=== PATIENT | male | born 1960 | race Caucasian/White ===

== ENCOUNTER 2018-10-28 07:02 | Emergency (ER) | payer MEDICARE, MEDICAID ==
[~2018-10-28] VITALS: Ht 193 cm; Wt 152.5 kg
[~2018-10-28 07:02] MED LIST: ALBU6.7H INH; ASPI325T80 PO; FLUT1DIS3 INH; GUAI600T80 PO; LEVO500T47 PO; NICO-487 TD; PRED10TA PO; [UNRECOGNIZED DRUG - REMARK]
--- NOTE | 2018-10-28 07:14 | NUR ---
PT AMBULATED TO ROOM WITH STEADY GAIT. PT COMPLAINS OF LEFT LQ PAIN THAT STARTED AT 2 AM. REPORTS A FEW BOUGHTS OF NAUSEA, DENIES NOW. PT IS ALERT, ORIENTED, WITH NAD. PT IS CONNECTED TO THE MONITOR. CALL LIGHT WITHIN REACH. Addendum: 10/28/18 at [address] SAFIA TO HIS ROOM. TRANSFERRED FROM [facility] TO BED BY SELF.
[2018-10-28] MEDS ORDERED: KETOROLAC 30 MG/1 ML ONE (07:51)
--- NOTE | 2018-10-28 07:59 | NUR ---
PT MEDICATED PER ORDER. PT TOLERATED WELL.
[2018-10-28] MEDS ORDERED: KETOROLAC 30 MG/1 ML IM ONE (08:00)
--- NOTE | 2018-10-28 08:05 | NUR ---
PT TAKEN TO CT.
--- NOTE | 2018-10-28 08:51 | NUR ---
PT IS RESTING IN BED WITH EYES CLOSED, RESPIRATIONS EQUAL AND NON LABORED. NAD. PT IS CONNECTED TO THE MONITOR. CALL LIGHT WITHIN REACH.
--- NOTE | 2018-10-28 09:09 | NUR ---
REMINDED PT OF THE NEED FOR A URINE SAMPLE. PT STATED THAT HE DOES NOT HAVE TO GO AT THIS TIME.
[2018-10-28 10:11] VITALS: BP 158/99
--- NOTE | 2018-10-28 10:11 | NUR ---
PT IS RESTING IN BED, RESPIRATIONS EQUAL AND NON LABORED. NAD. PT IS CONNECTED TO THE MONITOR. CALL LIGHT WITHIN REACH.
--- NOTE | 2018-10-28 10:24 | NUR ---
Patient given discharge instructions and they have confirmed that they understand the instructions. Patient ambulatory with steady gait.
== END 2018-10-28 10:45 | disposition home or self-care (01) ==
LOC: ED 08:47
DX: N13.2 Hydronephrosis with renal and ureteral calculous obstruction (principal); J44.9 Chronic obstructive pulmonary disease, unspecified
CPT/HCPCS: 74176; 96372; 99284; J1885

== ENCOUNTER 2019-05-24 03:40 | Inpatient (IN) | payer MEDICARE, MEDICAID ==
[~2019-05-24] VITALS: Ht 193 cm; Wt 153.8 kg
[~2019-05-24 03:40] MED LIST changes: -ALBU6.7H INH; +ALBU6.7H8 INH; +APIX5TAB PO; +AZIT500T5 PO; +CYAN-27 PO; +FOLI-17 PO; +MULT1TAB60 PO; +TAMS-11 PO; +THIA100T67 PO
[2019-05-24] MEDS ORDERED: DOCUSATE 100 MG CAPSULE PO PRN (05:00)
[2019-05-24] MEDS ORDERED: POLYETHYLENE GLYCOL 17 GM PACKET PO PRN (05:00)
[2019-05-24] MEDS ORDERED: BISACODYL 10 MG SUPP PR PRN (05:00)
[2019-05-24] MEDS ORDERED: ACETAMINOPHEN 325 MG TABLET PO PRN (05:00)
[2019-05-24 05:04] VITALS: BP 127/83
[2019-05-24 05:51] VITALS: BP 127/83
[2019-05-24 07:13] LABS: ANION GAP 10 mmol/L (5-15); CALCIUM 8.5 mg/dL (8.5-10.1); CHLORIDE 101 mmol/L (98-107); CHOLESTEROL, TOTAL 177 mg/dL (140-239); TRIGLYCERIDES 82 mg/dL (50-200); VLDL CHOLESTEROL 16 mg/dL (0-25)
[2019-05-24 07:37] VITALS: BP 123/77
[2019-05-24 07:37] LABS: BASOPHILS # (AUTO) 0.03 x10^3/uL (0-0.1); BASOPHILS % (AUTO) 1 % (0-1); EOSINOPHILS # (AUTO) 0.19 x10^3/uL (0-0.4); EOSINOPHILS % (AUTO) 3 % (1-7); LYMPHOCYTES # (AUTO) 1.28 x10^3/uL (1-3.4); LYMPHOCYTES % (AUTO) 19 % (22-44); MD SCAN; MEAN CORPUSCULAR HEMOGLOBIN 35.7 pg (27.5-34.5); MEAN CORPUSCULAR HGB CONC 33.1 g/dL (33.2-36.2); MEAN CORPUSCULAR VOLUME 107.8 fL (81-97); MEAN PLATELET VOLUME 8.4 fL (7.4-10.4); MONOCYTES # (AUTO) 0.67 x10^3/uL (0.2-0.8); MONOCYTES % (AUTO) 10 % (2-9); NEUTROPHILS # (AUTO) 4.49 x10^3/uL (1.8-6.8); NEUTROPHILS % (AUTO) 67 % (42-75); PLATELET COUNT 90 x10^3/uL (130-400); RED BLOOD COUNT 4.07 x10^6/uL (4.38-5.82); RED CELL DISTRIBUTION WIDTH 20.8 % (9.4-14.8)
[2019-05-24 07:38] LABS: CHOL/HDL RATIO 2.2; FREE T4 (FREE THYROXINE) 1.13 ng/dL (0.76-1.46); HDL CHOL % 46 % (26-37); HDL CHOLESTEROL (DIRECT) 82 mg/dL (40-60); LDL CHOLESTEROL,CALCULATED 79 mg/dL (54-169)
[2019-05-24 07:43] VITALS: BP 123/77
[2019-05-24] MEDS ORDERED: POTASSIUM CHLORIDE 20 MEQ TAB.ER.PRT PO ONE (14:30)
[2019-05-24] MEDS: ACAMPROSATE 333 MG TABLET.DR PO SCH ×2 (16:05→20:36)
[2019-05-24 19:30] VITALS: BP 118/75
[2019-05-24 20:14] LABS: MICROSCOPIC AUTO
[2019-05-24 20:15] LABS: CULTURE INDICATED? YES
[2019-05-24] MEDS: THIAMINE 100MG TABLET PO SCH (20:36)
[2019-05-24] MEDS: APIXABAN 5 MG TABLET PO SCH (20:36)
[2019-05-24] MEDS: GUAIFENESIN ER 600 MG TABLET PO SCH (21:00)
[2019-05-25 07:42] VITALS: BP 103/66
[2019-05-25] MEDS: ACAMPROSATE 333 MG TABLET.DR PO SCH ×3 (08:42→20:19)
[2019-05-25] MEDS: APIXABAN 5 MG TABLET PO SCH ×2 (08:42→20:19)
[2019-05-25] MEDS: FOLIC ACID 1 MG TABLET PO SCH (08:42)
[2019-05-25] MEDS: MULTIVITAMIN 1 TABLET PO SCH (08:42)
[2019-05-25] MEDS: GUAIFENESIN ER 600 MG TABLET PO SCH ×2 (08:42→20:19)
[2019-05-25] MEDS: THIAMINE 100MG TABLET PO SCH ×2 (08:43→20:19)
[2019-05-25] MEDS: CYANOCOBALAMIN 1,000 MCG TABLET PO SCH (08:43)
[2019-05-25] MEDS: TAMSULOSIN 0.4 MG CAP.ER.24H PO SCH (08:46)
[2019-05-25 19:46] VITALS: BP 115/76
[2019-05-26] MEDS: ACAMPROSATE 333 MG TABLET.DR PO SCH ×4 (09:00→20:27)
[2019-05-26] MEDS: TAMSULOSIN 0.4 MG CAP.ER.24H PO SCH ×2 (09:00→09:21)
[2019-05-26] MEDS: APIXABAN 5 MG TABLET PO SCH ×4 (09:00→20:34)
[2019-05-26] MEDS: GUAIFENESIN ER 600 MG TABLET PO SCH ×2 (09:21→20:27)
[2019-05-26] MEDS: THIAMINE 100MG TABLET PO SCH ×2 (09:21→20:27)
[2019-05-26] MEDS: FOLIC ACID 1 MG TABLET PO SCH (09:21)
[2019-05-26] MEDS: CYANOCOBALAMIN 1,000 MCG TABLET PO SCH (09:21)
[2019-05-26] MEDS: MULTIVITAMIN 1 TABLET PO SCH (09:21)
[2019-05-26 19:28] VITALS: BP 103/71
[2019-05-27 07:13] VITALS: BP 106/68
[2019-05-27] MEDS: TAMSULOSIN 0.4 MG CAP.ER.24H PO SCH (08:30)
[2019-05-27] MEDS: ACAMPROSATE 333 MG TABLET.DR PO SCH ×3 (08:30→21:06)
[2019-05-27] MEDS: GUAIFENESIN ER 600 MG TABLET PO SCH ×2 (08:30→21:06)
[2019-05-27] MEDS: THIAMINE 100MG TABLET PO SCH ×2 (08:30→21:04)
[2019-05-27] MEDS: APIXABAN 5 MG TABLET PO SCH (08:30)
[2019-05-27] MEDS: MULTIVITAMIN 1 TABLET PO SCH (08:30)
[2019-05-27] MEDS: FOLIC ACID 1 MG TABLET PO SCH (08:30)
[2019-05-27] MEDS: CYANOCOBALAMIN 1,000 MCG TABLET PO SCH (08:30)
[2019-05-27] MEDS: ASPIRIN 325 MG TABLET PO SCH (10:23)
[2019-05-27 19:42] VITALS: BP 99/63
[2019-05-28 07:35] VITALS: BP 112/73
[2019-05-28] MEDS: THIAMINE 100MG TABLET PO SCH ×2 (08:57→20:26)
[2019-05-28] MEDS: GUAIFENESIN ER 600 MG TABLET PO SCH ×2 (08:57→20:26)
[2019-05-28] MEDS: FOLIC ACID 1 MG TABLET PO SCH (08:57)
[2019-05-28] MEDS: ASPIRIN 325 MG TABLET PO SCH (08:57)
[2019-05-28] MEDS: ACAMPROSATE 333 MG TABLET.DR PO SCH ×3 (08:57→20:26)
[2019-05-28] MEDS: MULTIVITAMIN 1 TABLET PO SCH (08:57)
[2019-05-28] MEDS: CYANOCOBALAMIN 1,000 MCG TABLET PO SCH (08:57)
[2019-05-28 19:59] VITALS: BP 97/70
[2019-05-29 07:45] VITALS: BP 92/65
[2019-05-29] MEDS: ACAMPROSATE 333 MG TABLET.DR PO SCH ×3 (09:48→20:23)
[2019-05-29] MEDS: GUAIFENESIN ER 600 MG TABLET PO SCH ×2 (09:48→20:23)
[2019-05-29] MEDS: MULTIVITAMIN 1 TABLET PO SCH (09:49)
[2019-05-29] MEDS: ASPIRIN 325 MG TABLET PO SCH (09:49)
[2019-05-29] MEDS: THIAMINE 100MG TABLET PO SCH ×2 (09:49→20:23)
[2019-05-29] MEDS: CYANOCOBALAMIN 1,000 MCG TABLET PO SCH (09:49)
[2019-05-29] MEDS: FOLIC ACID 1 MG TABLET PO SCH (09:49)
[2019-05-29 19:30] VITALS: BP 100/68
[2019-05-29] MEDS ORDERED: MELATONIN 5 MG TABLET PO SCH (21:00)
[2019-05-30 07:47] VITALS: BP 93/62
[2019-05-30] MEDS: THIAMINE 100MG TABLET PO SCH ×2 (09:11→20:48)
[2019-05-30] MEDS: MULTIVITAMIN 1 TABLET PO SCH (09:11)
[2019-05-30] MEDS: ACAMPROSATE 333 MG TABLET.DR PO SCH ×3 (09:11→20:48)
[2019-05-30] MEDS: FOLIC ACID 1 MG TABLET PO SCH (09:11)
[2019-05-30] MEDS: CYANOCOBALAMIN 1,000 MCG TABLET PO SCH (09:11)
[2019-05-30] MEDS: GUAIFENESIN ER 600 MG TABLET PO SCH ×2 (09:11→20:48)
[2019-05-30] MEDS: ASPIRIN 325 MG TABLET PO SCH (09:11)
[2019-05-30 19:27] VITALS: BP 93/62
[2019-05-30 20:30] VITALS: BP 100/66
[2019-05-30] MEDS: QUETIAPINE 100MG TABLET PO SCH (20:48)
[2019-05-31 07:20] VITALS: BP 102/64
[2019-05-31] MEDS: GUAIFENESIN ER 600 MG TABLET PO SCH ×2 (08:37→20:13)
[2019-05-31] MEDS: MULTIVITAMIN 1 TABLET PO SCH (08:37)
[2019-05-31] MEDS: THIAMINE 100MG TABLET PO SCH ×2 (08:37→20:12)
[2019-05-31] MEDS: CYANOCOBALAMIN 1,000 MCG TABLET PO SCH (08:37)
[2019-05-31] MEDS: ACAMPROSATE 333 MG TABLET.DR PO SCH ×3 (08:38→20:13)
[2019-05-31] MEDS: ASPIRIN 325 MG TABLET PO SCH (08:40)
[2019-05-31] MEDS: FOLIC ACID 1 MG TABLET PO SCH (08:47)
[2019-05-31 19:15] VITALS: BP 92/62
[2019-05-31] MEDS: QUETIAPINE 100MG TABLET PO SCH (20:13)
[2019-06-01 07:17] VITALS: BP 112/72
[2019-06-01] MEDS: ACAMPROSATE 333 MG TABLET.DR PO SCH ×4 (09:00→20:15)
[2019-06-01] MEDS: ASPIRIN 325 MG TABLET PO SCH ×2 (09:00→09:08)
[2019-06-01] MEDS: THIAMINE 100MG TABLET PO SCH ×3 (09:00→20:15)
[2019-06-01] MEDS: FOLIC ACID 1 MG TABLET PO SCH ×2 (09:00→09:07)
[2019-06-01] MEDS: CYANOCOBALAMIN 1,000 MCG TABLET PO SCH ×2 (09:00→09:07)
[2019-06-01] MEDS: MULTIVITAMIN 1 TABLET PO SCH ×2 (09:00→09:07)
[2019-06-01] MEDS: GUAIFENESIN ER 600 MG TABLET PO SCH ×3 (09:00→20:15)
[2019-06-01 19:00] VITALS: BP 100/70
[2019-06-01] MEDS: QUETIAPINE 100MG TABLET PO SCH (20:15)
[2019-06-01] MEDS: APIXABAN 5 MG TABLET PO SCH (20:15)
[2019-06-02 07:19] VITALS: BP 110/68
[2019-06-02] MEDS: FOLIC ACID 1 MG TABLET PO SCH (08:36)
[2019-06-02] MEDS: APIXABAN 5 MG TABLET PO SCH ×2 (08:36→20:36)
[2019-06-02] MEDS: ACAMPROSATE 333 MG TABLET.DR PO SCH ×3 (08:36→20:36)
[2019-06-02] MEDS: MULTIVITAMIN 1 TABLET PO SCH (08:37)
[2019-06-02] MEDS: GUAIFENESIN ER 600 MG TABLET PO SCH ×2 (08:37→20:38)
[2019-06-02] MEDS: THIAMINE 100MG TABLET PO SCH ×2 (08:37→20:36)
[2019-06-02] MEDS: CYANOCOBALAMIN 1,000 MCG TABLET PO SCH (08:38)
[2019-06-02 19:00] VITALS: BP 100/70
[2019-06-02] MEDS: QUETIAPINE 100MG TABLET PO SCH (20:36)
[2019-06-03 07:19] VITALS: BP 116/70
[2019-06-03] MEDS: CYANOCOBALAMIN 1,000 MCG TABLET PO SCH (08:46)
[2019-06-03] MEDS: MULTIVITAMIN 1 TABLET PO SCH (08:46)
[2019-06-03] MEDS: GUAIFENESIN ER 600 MG TABLET PO SCH ×2 (08:46→20:24)
[2019-06-03] MEDS: APIXABAN 5 MG TABLET PO SCH ×2 (08:46→20:24)
[2019-06-03] MEDS: THIAMINE 100MG TABLET PO SCH ×2 (08:46→20:24)
[2019-06-03] MEDS: ACAMPROSATE 333 MG TABLET.DR PO SCH ×3 (08:46→20:24)
[2019-06-03] MEDS: FOLIC ACID 1 MG TABLET PO SCH (08:46)
[2019-06-03 19:20] VITALS: BP 110/72
[2019-06-03] MEDS: QUETIAPINE 100MG TABLET PO SCH (20:25)
[2019-06-04 07:15] VITALS: BP_SYST 116; BP_SYST 131; BP_DIAS 55; BP_DIAS 76
[2019-06-04] MEDS: CYANOCOBALAMIN 1,000 MCG TABLET PO SCH (09:16)
[2019-06-04] MEDS: ACAMPROSATE 333 MG TABLET.DR PO SCH ×3 (09:16→20:10)
[2019-06-04] MEDS: MULTIVITAMIN 1 TABLET PO SCH (09:16)
[2019-06-04] MEDS: THIAMINE 100MG TABLET PO SCH ×2 (09:16→20:10)
[2019-06-04] MEDS: FOLIC ACID 1 MG TABLET PO SCH (09:16)
[2019-06-04] MEDS: APIXABAN 5 MG TABLET PO SCH ×2 (09:17→20:10)
[2019-06-04] MEDS: GUAIFENESIN ER 600 MG TABLET PO SCH ×2 (09:17→20:10)
[2019-06-04 19:47] VITALS: BP 113/76
[2019-06-04] MEDS: QUETIAPINE 100MG TABLET PO SCH (20:10)
[2019-06-05 06:14] LABS: CREATININE 1.65 mg/dL (0.7-1.3)
[2019-06-05 07:48] VITALS: BP 105/69
[2019-06-05] MEDS: FOLIC ACID 1 MG TABLET PO SCH (08:56)
[2019-06-05] MEDS: ACAMPROSATE 333 MG TABLET.DR PO SCH ×3 (08:56→20:46)
[2019-06-05] MEDS: GUAIFENESIN ER 600 MG TABLET PO SCH ×2 (08:56→20:46)
[2019-06-05] MEDS: APIXABAN 5 MG TABLET PO SCH ×2 (08:56→20:47)
[2019-06-05] MEDS: MULTIVITAMIN 1 TABLET PO SCH (08:56)
[2019-06-05] MEDS: CYANOCOBALAMIN 1,000 MCG TABLET PO SCH (08:57)
[2019-06-05] MEDS: THIAMINE 100MG TABLET PO SCH ×2 (08:57→20:47)
[2019-06-05 19:15] VITALS: BP 95/60
[2019-06-05] MEDS: QUETIAPINE 100MG TABLET PO SCH (20:46)
[2019-06-06 07:30] VITALS: BP 115/76
[2019-06-06] MEDS: ACAMPROSATE 333 MG TABLET.DR PO SCH ×3 (09:01→21:01)
[2019-06-06] MEDS: GUAIFENESIN ER 600 MG TABLET PO SCH ×2 (09:01→21:01)
[2019-06-06] MEDS: MULTIVITAMIN 1 TABLET PO SCH (09:01)
[2019-06-06] MEDS: THIAMINE 100MG TABLET PO SCH ×2 (09:01→21:01)
[2019-06-06] MEDS: CYANOCOBALAMIN 1,000 MCG TABLET PO SCH (09:02)
[2019-06-06] MEDS: APIXABAN 5 MG TABLET PO SCH ×2 (09:02→21:01)
[2019-06-06] MEDS: FOLIC ACID 1 MG TABLET PO SCH (09:02)
[2019-06-06] MEDS ORDERED: LOPERAMIDE 2 MG CAPSULE ONE (10:26)
[2019-06-06] MEDS: LOPERAMIDE 2 MG CAPSULE PO PRN (10:35)
[2019-06-06 19:36] VITALS: BP 106/69
[2019-06-06] MEDS: QUETIAPINE 100MG TABLET PO SCH (21:01)
[2019-06-07 07:14] VITALS: BP 117/78
[2019-06-07] MEDS: ACAMPROSATE 333 MG TABLET.DR PO SCH ×3 (08:23→20:34)
[2019-06-07] MEDS: APIXABAN 5 MG TABLET PO SCH ×2 (08:23→20:34)
[2019-06-07] MEDS: THIAMINE 100MG TABLET PO SCH ×2 (08:24→20:34)
[2019-06-07] MEDS: CYANOCOBALAMIN 1,000 MCG TABLET PO SCH (08:24)
[2019-06-07] MEDS: FOLIC ACID 1 MG TABLET PO SCH (08:24)
[2019-06-07] MEDS: MULTIVITAMIN 1 TABLET PO SCH (08:24)
[2019-06-07] MEDS: GUAIFENESIN ER 600 MG TABLET PO SCH ×2 (08:24→20:34)
[2019-06-07 19:46] VITALS: BP 113/76
[2019-06-07] MEDS: QUETIAPINE 100MG TABLET PO SCH (20:34)
[2019-06-07] MEDS: LOPERAMIDE 2 MG CAPSULE PO PRN (20:42)
[2019-06-08 06:02] LABS: CREATININE 1.75 mg/dL (0.7-1.3)
[2019-06-08 07:25] VITALS: BP 113/74
[2019-06-08] MEDS: GUAIFENESIN ER 600 MG TABLET PO SCH ×2 (08:09→20:16)
[2019-06-08] MEDS: MULTIVITAMIN 1 TABLET PO SCH (08:09)
[2019-06-08] MEDS: FOLIC ACID 1 MG TABLET PO SCH (08:09)
[2019-06-08] MEDS: APIXABAN 5 MG TABLET PO SCH ×2 (08:10→20:16)
[2019-06-08] MEDS: ACAMPROSATE 333 MG TABLET.DR PO SCH ×3 (08:10→20:16)
[2019-06-08] MEDS: CYANOCOBALAMIN 1,000 MCG TABLET PO SCH (08:10)
[2019-06-08] MEDS: THIAMINE 100MG TABLET PO SCH ×2 (08:10→20:16)
[2019-06-08] MEDS: OXYcodone IR 5MG TABLET PO PRN ×2 (17:23→21:32)
[2019-06-08] MEDS: SODIUM CHLORIDE 0.9% 1,000 ML IV SCH (17:51)
[2019-06-08 19:25] VITALS: BP 152/77
[2019-06-08] MEDS: QUETIAPINE 100MG TABLET PO SCH (20:16)
[2019-06-09] MEDS: SODIUM CHLORIDE 0.9% 1,000 ML IV SCH ×3 (01:33→18:50)
[2019-06-09] MEDS: OXYcodone IR 5MG TABLET PO PRN ×5 (01:53→20:36)
[2019-06-09 07:12] VITALS: BP 130/81
[2019-06-09] MEDS: FOLIC ACID 1 MG TABLET PO SCH (08:30)
[2019-06-09] MEDS: GUAIFENESIN ER 600 MG TABLET PO SCH ×2 (08:30→20:35)
[2019-06-09] MEDS: THIAMINE 100MG TABLET PO SCH ×2 (08:30→20:35)
[2019-06-09] MEDS: APIXABAN 5 MG TABLET PO SCH ×2 (08:30→20:36)
[2019-06-09] MEDS: CYANOCOBALAMIN 1,000 MCG TABLET PO SCH (08:30)
[2019-06-09] MEDS: MULTIVITAMIN 1 TABLET PO SCH (08:30)
[2019-06-09] MEDS: ACAMPROSATE 333 MG TABLET.DR PO SCH ×3 (08:30→20:35)
[2019-06-09 19:28] VITALS: BP 107/68
[2019-06-09] MEDS: QUETIAPINE 100MG TABLET PO SCH (20:36)
[2019-06-10] MEDS: OXYcodone IR 5MG TABLET PO PRN ×2 (00:51→08:40)
[2019-06-10] MEDS: SODIUM CHLORIDE 0.9% 1,000 ML IV SCH (03:28)
[2019-06-10 07:17] VITALS: BP 134/78
[2019-06-10] MEDS: CYANOCOBALAMIN 1,000 MCG TABLET PO SCH (08:40)
[2019-06-10] MEDS: GUAIFENESIN ER 600 MG TABLET PO SCH ×2 (08:40→20:25)
[2019-06-10] MEDS: THIAMINE 100MG TABLET PO SCH ×2 (08:40→20:25)
[2019-06-10] MEDS: FOLIC ACID 1 MG TABLET PO SCH (08:41)
[2019-06-10] MEDS: MULTIVITAMIN 1 TABLET PO SCH (08:41)
[2019-06-10] MEDS: APIXABAN 5 MG TABLET PO SCH ×2 (08:41→20:25)
[2019-06-10] MEDS: ACAMPROSATE 333 MG TABLET.DR PO SCH ×3 (08:41→20:25)
[2019-06-10 13:15] LABS: BASOPHILS # (AUTO) 0.05 x10^3/uL (0-0.1); BASOPHILS % (AUTO) 1 % (0-1); EOSINOPHILS # (AUTO) 0.12 x10^3/uL (0-0.4); EOSINOPHILS % (AUTO) 2 % (1-7); LYMPHOCYTES # (AUTO) 1.12 x10^3/uL (1-3.4); LYMPHOCYTES % (AUTO) 22 % (22-44); MD NO; MEAN CORPUSCULAR HEMOGLOBIN 35.6 pg (27.5-34.5); MEAN CORPUSCULAR HGB CONC 33.4 g/dL (33.2-36.2); MEAN CORPUSCULAR VOLUME 106.4 fL (81-97); MEAN PLATELET VOLUME 7.8 fL (7.4-10.4); MONOCYTES # (AUTO) 0.69 x10^3/uL (0.2-0.8); MONOCYTES % (AUTO) 14 % (2-9); NEUTROPHILS # (AUTO) 3.14 x10^3/uL (1.8-6.8); NEUTROPHILS % (AUTO) 61 % (42-75); PLATELET COUNT 261 x10^3/uL (130-400); RED BLOOD COUNT 4.33 x10^6/uL (4.38-5.82)
[2019-06-10 13:24] LABS: ANION GAP 7 mmol/L (5-15); CALCIUM 8.7 mg/dL (8.5-10.1); CHLORIDE 111 mmol/L (98-107); CREATININE 1.67 mg/dL (0.7-1.3)
[2019-06-10 19:21] VITALS: BP 130/81
[2019-06-10] MEDS: QUETIAPINE 100MG TABLET PO SCH (20:24)
[2019-06-11 05:50] LABS: CREATININE 1.79 mg/dL (0.7-1.3)
[2019-06-11 07:27] VITALS: BP 107/68
[2019-06-11] MEDS: FOLIC ACID 1 MG TABLET PO SCH (08:42)
[2019-06-11] MEDS: ACAMPROSATE 333 MG TABLET.DR PO SCH ×3 (08:43→20:07)
[2019-06-11] MEDS: THIAMINE 100MG TABLET PO SCH ×2 (08:43→20:07)
[2019-06-11] MEDS: APIXABAN 5 MG TABLET PO SCH ×2 (08:43→20:07)
[2019-06-11] MEDS: MULTIVITAMIN 1 TABLET PO SCH (08:43)
[2019-06-11] MEDS: CYANOCOBALAMIN 1,000 MCG TABLET PO SCH (08:44)
[2019-06-11] MEDS: GUAIFENESIN ER 600 MG TABLET PO SCH ×2 (08:44→20:07)
[2019-06-11 19:32] VITALS: BP 114/75
[2019-06-11] MEDS: QUETIAPINE 100MG TABLET PO SCH (20:07)
[2019-06-12 05:51] LABS: ANION GAP 7 mmol/L (5-15); CALCIUM 8.6 mg/dL (8.5-10.1); CHLORIDE 110 mmol/L (98-107); CREATININE 1.65 mg/dL (0.7-1.3)
[2019-06-12 07:27] VITALS: BP 118/61
[2019-06-12] MEDS: APIXABAN 5 MG TABLET PO SCH ×2 (08:52→20:03)
[2019-06-12] MEDS: FOLIC ACID 1 MG TABLET PO SCH (08:52)
[2019-06-12] MEDS: GUAIFENESIN ER 600 MG TABLET PO SCH ×2 (08:52→20:03)
[2019-06-12] MEDS: CYANOCOBALAMIN 1,000 MCG TABLET PO SCH (08:52)
[2019-06-12] MEDS: THIAMINE 100MG TABLET PO SCH ×2 (08:52→20:05)
[2019-06-12] MEDS: ACAMPROSATE 333 MG TABLET.DR PO SCH ×3 (08:52→20:03)
[2019-06-12] MEDS: MULTIVITAMIN 1 TABLET PO SCH (08:52)
[2019-06-12] MEDS ORDERED: CYAN-27 PO (13:24)
[2019-06-12] MEDS ORDERED: APIX5TAB PO (13:24)
[2019-06-12] MEDS ORDERED: TRAM50TA2 PO (13:24)
[2019-06-12] MEDS ORDERED: ACAM333T7 PO (13:24)
[2019-06-12] MEDS ORDERED: MULT1TAB60 PO (13:24)
[2019-06-12] MEDS ORDERED: QUET100T PO (13:24)
[2019-06-12 19:26] VITALS: BP 83/55
[2019-06-12] MEDS: QUETIAPINE 100MG TABLET PO SCH (20:03)
[2019-06-13 05:36] LABS: ANION GAP 7 mmol/L (5-15); CALCIUM 8.1 mg/dL (8.5-10.1); CHLORIDE 109 mmol/L (98-107); CREATININE 1.56 mg/dL (0.7-1.3)
[2019-06-13 07:13] VITALS: BP 103/67
[2019-06-13] MEDS: APIXABAN 5 MG TABLET PO SCH (08:28)
[2019-06-13] MEDS: ACAMPROSATE 333 MG TABLET.DR PO SCH (08:28)
[2019-06-13] MEDS: FOLIC ACID 1 MG TABLET PO SCH (08:28)
[2019-06-13] MEDS: MULTIVITAMIN 1 TABLET PO SCH (08:29)
[2019-06-13] MEDS: GUAIFENESIN ER 600 MG TABLET PO SCH (08:29)
[2019-06-13] MEDS: CYANOCOBALAMIN 1,000 MCG TABLET PO SCH (09:00)
[2019-06-13] MEDS: THIAMINE 100MG TABLET PO SCH (09:00)
== END 2019-06-13 15:50 | disposition home or self-care (01) | DRG 885 ==
LOC: 3E 05:03
PROVIDERS: ADMIT Psychiatry & Neurology Psychosomatic Medicine; ATTEND Psychiatry & Neurology Psychosomatic Medicine
DX: F33.2 Major depressive disorder, recurrent severe without psychotic features (principal); R45.851 Suicidal ideations; Z68.41 Body mass index [BMI] 40.0-44.9, adult; D68.51 Activated protein C resistance; I50.32 Chronic diastolic (congestive) heart failure; K56.7 Ileus, unspecified; F10.20 Alcohol dependence, uncomplicated; E66.01 Morbid (severe) obesity due to excess calories; F17.210 Nicotine dependence, cigarettes, uncomplicated; J44.9 Chronic obstructive pulmonary disease, unspecified; D69.6 Thrombocytopenia, unspecified; D75.89 Other specified diseases of blood and blood-forming organs; E53.8 Deficiency of other specified B group vitamins; E87.6 Hypokalemia; F41.9 Anxiety disorder, unspecified; G47.00 Insomnia, unspecified; I71.4 Abdominal aortic aneurysm, without rupture; N18.9 Chronic kidney disease, unspecified; N20.0 Calculus of kidney; Z91.19 Patient's noncompliance with other medical treatment and regimen; Z86.718 Personal history of other venous thrombosis and embolism; Z86.711 Personal history of pulmonary embolism; Z88.8 Allergy status to other drugs, medicaments and biological substances
CPT/HCPCS: 36415; 71045; 74021; 74176; 80048; 80061; 81001; 82140; 82565; 82607; 83735; 84439; 84443; 85025; 86592; 87086; 93005; 93970; J7030

== ENCOUNTER 2019-10-07 07:10 | Emergency (ER) | payer MEDICARE, MEDICAID ==
[~2019-10-07] VITALS: Ht 193 cm; Wt 137.0 kg
[~2019-10-07 07:10] MED LIST changes: +ACAM333T7 PO; +AZIT500T10 PO; -AZIT500T5 PO; +QUET100T PO; +TRAM50TA2 PO
[2019-10-07] MEDS ORDERED: ASPI325T17 PO (07:46)
[2019-10-07 08:09] LABS: BASOPHILS # (AUTO) 0.02 x10^3/uL (0-0.1); BASOPHILS % (AUTO) 0 % (0-1); EOSINOPHILS # (AUTO) 0.08 x10^3/uL (0-0.4); EOSINOPHILS % (AUTO) 1 % (1-7); LYMPHOCYTES # (AUTO) 1.39 x10^3/uL (1-3.4); LYMPHOCYTES % (AUTO) 20 % (22-44); MD NO; MEAN CORPUSCULAR HGB CONC 32.9 g/dL (33.2-36.2); MEAN CORPUSCULAR VOLUME 103.4 fL (81-97); MEAN PLATELET VOLUME 7.1 fL (7.4-10.4); MONOCYTES # (AUTO) 0.27 x10^3/uL (0.2-0.8); MONOCYTES % (AUTO) 4 % (2-9); NEUTROPHILS # (AUTO) 5.25 x10^3/uL (1.8-6.8); NEUTROPHILS % (AUTO) 75 % (42-75); PLATELET COUNT 242 x10^3/uL (130-400); RED BLOOD COUNT 4.74 x10^6/uL (4.38-5.82); RED CELL DISTRIBUTION WIDTH 18.6 % (9.4-14.8)
[2019-10-07 08:19] LABS: ALANINE AMINOTRANSFERASE 44 U/L (12-78); ALBUMIN 2.7 g/dL (3.4-5.0); ANION GAP 13 mmol/L (5-15); CALCIUM 7.8 mg/dL (8.5-10.1); CHLORIDE 111 mmol/L (98-107); CREATININE 1.22 mg/dL (0.7-1.3)
[2019-10-07 08:22] LABS: ALKALINE PHOSPHATASE 136 U/L (45-117); BILIRUBIN,TOTAL 0.3 mg/dL (0.2-1.0); SALICYLATE LEVEL 9.6 mg/dL (2.8-20.0); TOTAL PROTEIN 7.2 g/dL (6.4-8.2)
--- NOTE | 2019-10-07 10:13 | NUR ---
CLEAN PANTS AND BRIEF PROVIDED TO PATIENT HE WAS INCONTINANT OF URINE.
--- NOTE | 2019-10-07 10:13 | NUR ---
BREAKFAST TRAY SERVED TO PATIENT.
--- NOTE | 2019-10-07 11:18 | NUR ---
VITAL SIGNS UPDATED AND WITHIN NORMAL LIMITS. BREAKFAST TRAY REMOVED. PATIENT ATE SMALL AMOUNT OF EGGS ONLY. URINE COLLECTED AND SENT TO LAB. PT RESTING WITH NO COMPLAINTS.
[2019-10-07 11:48] LABS: AMPHETAMINE SCREEN, URINE Negative (Negative); BARBITURATE SCREEN, URINE Negative (Negative); BENZODIAZEPINE SCREEN, URINE Negative (Negative); CANNABINOID SCREEN, URINE Negative (Negative); COCAINE SCREEN, URINE Negative (Negative); METHADONE SCREEN, URINE Negative (Negative); OPIATE SCREEN, URINE Negative (Negative)
--- NOTE | 2019-10-07 14:29 | NUR ---
VS UPDATED AND WNL. BREATHYLIZER PERFORMED AND IS 0.16. PT RESTING WITH NO COMPLAINTS.
--- NOTE | 2019-10-07 18:04 | NUR ---
REECE ROTH SERVED TO PATIENT. BREATHYLIZER PERFORMED AND IS 0.010 AT THIS TIME. Addendum: 10/07/19 at 1805 by KAYLEN CORRECTION. BREATHYLIZER=0.101
--- NOTE | 2019-10-07 18:29 | NUR ---
SBAR TELEPHONE HAND-OFF REPORT GIVEN TO SHERIDAN LANDRY IN [facility].
[2019-10-07 19:05] VITALS: BP 117/78
--- NOTE | 2019-10-07 19:05 | NUR ---
REPORT RECEIVED FROM SHERIDAN ANDRADE. PT UPDATED ON POC. MONITORING IN PLCAE, CALL LIGHT WITHIN REACH, ALL SAFETY MEASURES IN PLACE.
== END 2019-10-07 21:46 | disposition home or self-care (01) ==
LOC: ED 09:36
DX: F32.9 Major depressive disorder, single episode, unspecified (principal); F10.120 Alcohol abuse with intoxication, uncomplicated; J44.9 Chronic obstructive pulmonary disease, unspecified; Z86.718 Personal history of other venous thrombosis and embolism; Y90.9 Presence of alcohol in blood, level not specified
CPT/HCPCS: 36415; 80053; 80307; 85025; 93970; 99284